=== PATIENT | male | born 1995 | race Caucasian/White ===

== ENCOUNTER 2020-02-12 07:31 | Emergency (ER) | payer MEDICAID ==
[~2020-02-12] VITALS: Ht 190.5 cm; Wt 99.8 kg
[2020-02-12 07:34] VITALS: BP 155/74; Ht 190.5 cm; Wt 99.8 kg
== END 2020-02-12 07:55 | disposition home or self-care (01) ==
LOC: ED 07:31
DX: R07.89 Other chest pain (principal); R51.9 Headache, unspecified; R05 Cough; Z20.828 Contact with and (suspected) exposure to other viral communicable diseases; Z98.890 Other specified postprocedural states; Z90.89 Acquired absence of other organs
CPT/HCPCS: U0003

== ENCOUNTER 2020-02-19 19:06 | Emergency (ER) | payer MEDICAID, SELFPAY ==
[~2020-02-19] VITALS: Ht 190.5 cm; Wt 99.8 kg
[2020-02-19 19:08] VITALS: Ht 190.5 cm; Wt 99.8 kg
[2020-02-19 21:31] VITALS: BP 148/91
== END 2020-02-19 21:31 | disposition home or self-care (01) ==
LOC: ED 19:06
DX: R07.89 Other chest pain (principal); R05 Cough; R06.02 Shortness of breath; Z20.828 Contact with and (suspected) exposure to other viral communicable diseases
CPT/HCPCS: U0003